=== PATIENT | male | born 1975 | race Caucasian/White ===

== ENCOUNTER 2019-06-09 20:27 | Emergency (ER) | payer SELFPAY ==
[~2019-06-09] VITALS: Ht 162.6 cm; Wt 112.0 kg
[~2019-06-09 20:27] MED LIST: IBUP-1542 PO
[2019-06-09 20:34] VITALS: Ht 162.6 cm; Wt 112.0 kg
[2019-06-09] MEDS ORDERED: IBUPROFEN 600 MG TAB PO ONE (22:00)
[2019-06-09] MEDS ORDERED: DIPHTH/TET/ACEL PERTUSS (ADULT) 0.5 ML VIAL IM* ONE (22:00)
[2019-06-09 22:41] VITALS: BP 140/89; PULSE 82; RESP 18
== END 2019-06-09 22:48 | disposition home or self-care (01) ==
LOC: FTE 20:27
DX: S51.811A Laceration without foreign body of right forearm, initial encounter (principal); V49.49XA Driver injured in collision with other motor vehicles in traffic accident, initial encounter; Z23 Encounter for immunization
CPT/HCPCS: 90471; 90715

== ENCOUNTER 2019-06-11 21:04 | Emergency (ER) | payer SELFPAY ==
[~2019-06-11] VITALS: Ht 165.1 cm; Wt 112.4 kg
[2019-06-11 21:09] VITALS: BP 126/75; PULSE 83; RESP 16; Ht 165.1 cm; Wt 112.4 kg
== END 2019-06-11 22:36 | disposition home or self-care (01) ==
LOC: FTE 21:04
DX: Z48.00 Encounter for change or removal of nonsurgical wound dressing (principal)
CPT/HCPCS: 99281

== ENCOUNTER 2019-06-16 20:19 | Emergency (ER) | payer SELFPAY ==
[~2019-06-16] VITALS: Ht 167.6 cm; Wt 113.9 kg
[2019-06-16 20:33] VITALS: Ht 167.6 cm; Wt 113.9 kg
[2019-06-16 21:18] VITALS: BP 136/80; PULSE 88; RESP 18
== END 2019-06-16 21:32 | disposition home or self-care (01) ==
LOC: E/R 20:19
DX: Z48.02 Encounter for removal of sutures (principal)
CPT/HCPCS: 99281